=== PATIENT | female | born 1995 | race Caucasian/White ===

== ENCOUNTER → 2018-01-24 | Outpatient (CLI) | payer OTHER | END | disposition home or self-care (01) | LOC: MRI 07:27 | DX: M25.511 Pain in right shoulder (principal); Z98.890 Other specified postprocedural states; Z90.49 Acquired absence of other specified parts of digestive tract ==

== ENCOUNTER → 2018-09-06 | Outpatient (CLI) | payer OTHER | LOC: RAD 13:31 | DX: J18.9 Pneumonia, unspecified organism (principal) ==

== ENCOUNTER 2019-06-19 12:40 | Emergency (ER) | payer OTHER ==
[~2019-06-19] VITALS: Ht 162.6 cm; Wt 77.1 kg
[2019-06-19] MEDS ORDERED: MIRENA1 EACH IY (12:59)
[2019-06-19 13:35] LABS: URINE BILIRUBIN NEGATIVE (Negative); URINE BLOOD NEGATIVE (Negative); URINE CLARITY CLEAR; URINE COLOR YELLOW; URINE GLUCOSE-RANDOM* NEGATIVE (Negative); URINE KETONES NEGATIVE (Negative); URINE LEUKOCYTES-REFLEX NEGATIVE (Negative); URINE NITRITE-REFLEX NEGATIVE (Negative); URINE PROTEIN (DIPSTICK) NEGATIVE (Negative); URINE SPECIFIC GRAVITY <= 1.005 (1.005-1.035); URINE UROBILINOGEN 0.2 E.U./dl (0.2-1.0)
[2019-06-19 13:55] LABS: HEMATOCRIT 42.2 % (37.0-47.0); HEMOGLOBIN 14.4 gm/dL (12.0-15.0); MCH 30.8 pg (26.0-34.0); MCHC 34.1 g/dL (28.0-37.0); MCV 90.2 fL (80.0-100.0); RBC 4.68 mil/uL (4.20-5.00); RDW 12.6 % (10.5-14.5); WBC 7.6 thou/uL (4.0-11.0)
[2019-06-19 14:04] LABS: CALCIUM 9.5 mg/dL (8.5-10.1); CREATININE 0.8 mg/dL (0.6-1.0); POTASSIUM 3.7 mmol/L (3.5-5.1)
[2019-06-19] MEDS ORDERED: PRENATAL 19 CH1 EAC1 PO (16:28)
[2019-06-19 16:49] VITALS: BP 119/74
== END 2019-06-19 16:51 | disposition home or self-care (01) ==
LOC: ER 12:40
PROVIDERS: Emergency Medicine
DX: O26.891 Other specified pregnancy related conditions, first trimester (principal); R10.30 Lower abdominal pain, unspecified; Z3A.01 Less than 8 weeks gestation of pregnancy

== ENCOUNTER → 2019-06-24 | Outpatient (CLI) | payer OTHER ==
[~2019-06-24] MED LIST: MIRENA1 EACH IY; PRENATAL 19 CH1 EAC1 PO
== END ==
LOC: ULTRA 11:51
DX: N83.291 Other ovarian cyst, right side (principal)

== ENCOUNTER 2019-08-31 13:44 | Emergency (ER) | payer OTHER ==
[~2019-08-31] VITALS: Ht 162.6 cm; Wt 77.1 kg
[2019-08-31 15:12] LABS: BASOPHILS 0.6 % (0.0-2.0); EOSINOPHILS 0.8 % (0.0-3.0); HEMATOCRIT 42.1 % (37.0-47.0); HEMOGLOBIN 14.4 gm/dL (12.0-15.0); LYMPHOCYTES 32.4 % (24.0-44.0); MCH 30.3 pg (26.0-34.0); MCHC 34.2 g/dL (28.0-37.0); MCV 88.8 fL (80.0-100.0); PLATELET COUNT 301 thou/uL (150-400); POLYS 59.2 % (36.0-66.0); RBC 4.74 mil/uL (4.20-5.00); RDW 12.3 % (10.5-14.5); WBC 8.4 thou/uL (4.0-11.0)
[2019-08-31 15:27] LABS: CALCIUM 10.2 mg/dL (8.5-10.1); CREATININE 0.9 mg/dL (0.6-1.0); POTASSIUM 3.8 mmol/L (3.5-5.1)
[2019-08-31 15:32] LABS: ALBUMIN 4.3 g/dL (3.4-5.0); TOTAL BILIRUBIN 0.3 mg/dL (<0.1-1.0)
[2019-08-31] MEDS ORDERED: ONDANSETRON HCL4 M2 PO (16:17)
[2019-08-31 16:35] VITALS: BP 104/48
== END 2019-08-31 16:35 | disposition home or self-care (01) ==
LOC: ER 13:44
PROVIDERS: Physician Assistant
DX: O00.90 Unspecified ectopic pregnancy without intrauterine pregnancy (principal); N83.202 Unspecified ovarian cyst, left side; Z90.49 Acquired absence of other specified parts of digestive tract

== ENCOUNTER → 2020-01-29 | Outpatient (CLI) | payer OTHER ==
[~2020-01-29] MED LIST changes: +ONDANSETRON HCL4 M2 PO
== END ==
LOC: LAB 09:56
DX: R53.83 Other fatigue (principal)

== ENCOUNTER → 2020-02-14 | Outpatient (CLI) | payer OTHER ==
[2020-02-18 09:08] LABS: ANTI-DNA SCREEN 2 IU/mL (0-9); ANTI-RNP <0.2 AI (0.0-0.9)
== END ==
LOC: LAB 11:36
PROVIDERS: ATTEND Nurse Practitioner
DX: E55.9 Vitamin D deficiency, unspecified (principal); M25.50 Pain in unspecified joint

== ENCOUNTER → 2020-03-17 | Outpatient (CLI) | payer OTHER | LOC: ULTRA 10:58 | PROVIDERS: ATTEND Nurse Practitioner | DX: Z34.91 Encounter for supervision of normal pregnancy, unspecified, first trimester (principal); Z3A.01 Less than 8 weeks gestation of pregnancy ==

== ENCOUNTER → 2020-04-28 | Outpatient (CLI) | payer OTHER | LOC: ULTRA 08:42 | PROVIDERS: ATTEND Obstetrics & Gynecology | DX: O47.02 False labor before 37 completed weeks of gestation, second trimester (principal); Z3A.13 13 weeks gestation of pregnancy ==

== ENCOUNTER → 2020-06-19 | Outpatient (CLI) | payer OTHER | LOC: LAB 10:09 | PROVIDERS: ATTEND Obstetrics & Gynecology | DX: Z34.92 Encounter for supervision of normal pregnancy, unspecified, second trimester (principal) ==

== ENCOUNTER → 2020-06-23 | Outpatient (CLI) | payer OTHER | LOC: ULTRA 08:46 | PROVIDERS: ATTEND Obstetrics & Gynecology | DX: Z34.82 Encounter for supervision of other normal pregnancy, second trimester (principal); Z3A.20 20 weeks gestation of pregnancy ==

== ENCOUNTER → 2020-07-28 | Outpatient (CLI) | payer OTHER | LOC: ULTRA 10:30 | PROVIDERS: ATTEND Obstetrics & Gynecology | DX: Z34.02 Encounter for supervision of normal first pregnancy, second trimester (principal); Z3A.26 26 weeks gestation of pregnancy ==

== ENCOUNTER → 2020-08-11 | Outpatient (CLI) | payer OTHER ==
[2020-08-11 16:02] LABS: HEMATOCRIT 33.2 % (37.0-47.0); HEMOGLOBIN 11.4 gm/dL (12.0-15.0); MCH 30.5 pg (26.0-34.0); MCHC 34.3 g/dL (28.0-37.0); RBC 3.73 mil/uL (4.20-5.00); RDW 13.6 % (10.5-14.5); WBC 11.3 thou/uL (4.0-11.0)
== END ==
LOC: LABMALL 15:15
PROVIDERS: ATTEND Obstetrics & Gynecology
DX: Z34.92 Encounter for supervision of normal pregnancy, unspecified, second trimester (principal)

== ENCOUNTER 2020-08-16 19:01 | Emergency (ER) | payer OTHER ==
[~2020-08-16] VITALS: Ht 162.6 cm; Wt 90.7 kg
[2020-08-16 19:21] LABS: URINE BILIRUBIN NEGATIVE (Negative); URINE BLOOD NEGATIVE (Negative); URINE CLARITY CLEAR; URINE COLOR YELLOW; URINE GLUCOSE-RANDOM* NEGATIVE (Negative); URINE KETONES NEGATIVE (Negative); URINE NITRITE-REFLEX NEGATIVE (Negative); URINE PROTEIN (DIPSTICK) NEGATIVE (Negative); URINE UROBILINOGEN 0.2 E.U./dl (0.2-1.0)
[2020-08-16 19:27] LABS: ABSOLUTE NEUTROPHILS 11.2 thou/uL (1.4-8.2); BASOPHILS 0.6 % (0.0-2.0); EOSINOPHILS 0.4 % (0.0-3.0); HEMATOCRIT 35.4 % (37.0-47.0); HEMOGLOBIN 11.9 gm/dL (12.0-15.0); MCHC 33.8 g/dL (28.0-37.0); MCV 88.8 fL (80.0-100.0); MONOCYTES 7.3 % (1.0-8.0); PLATELET COUNT 310 thou/uL (150-400); POLYS 71.7 % (36.0-66.0); RBC 3.98 mil/uL (4.20-5.00); WBC 15.6 thou/uL (4.0-11.0)
[2020-08-16 19:28] LABS: URINE LEUKOCYTES-REFLEX 2+ (Negative)
[2020-08-16 19:43] LABS: SQUAMOUS >10 Many /LPF (0-3)
[2020-08-16 19:43] LABS: CALCIUM 9.4 mg/dL (8.5-10.1); CREATININE 0.8 mg/dL (0.6-1.0); POTASSIUM 3.7 mmol/L (3.5-5.1)
[2020-08-16 19:44] LABS: CASTS None Seen /LPF (None Seen); CRYSTALS None Seen /LPF (None Seen); URINE RBC 0-2 Rare /HPF (0-2)
[2020-08-16 19:50] LABS: APTT 22.9 Seconds (24.5-32.8); PROTIME 9.7 Seconds (9.3-11.4)
[2020-08-16 19:53] LABS: ALBUMIN 2.9 g/dL (3.4-5.0); TOTAL BILIRUBIN 0.2 mg/dL (0.2-1.0); TOTAL PROTEIN 6.8 g/dL (6.4-8.2); TROPONIN-I 0.09 ng/mL (<0.06)
[2020-08-16] MEDS ORDERED: CYCLOBENZAPRINE5 MG PO (20:22)
[2020-08-16] MEDS ORDERED: KEFLEX500 M1 PO (20:26)
[2020-08-16 20:45] VITALS: BP 112/71
[2020-08-16 20:58] LABS: URIC ACID* 3.8 mg/dL (2.6-6.0)
--- NOTE | 2020-08-17 07:23 | EKG ---
[facility] [address] [facility] [place] [address] ELECTROCARDIOGRAM REPORT Name: OPAL HIDALGO Room #: DEP Darlene#: [id number] Admission: 08/16/20 Attend Phys: Discharge: 08/16/20 Date of : 89 Report #: [id number] <ELECTRONICALLY SIGNED> By: Sandeep Naik MD, FACC 08/17/20 0723 47 47 Sandeep Naik MD, FACC /EPI
== END 2020-08-16 20:44 | disposition home or self-care (01) ==
LOC: ER 19:01
PROVIDERS: Emergency Medicine
DX: O23.43 Unspecified infection of urinary tract in pregnancy, third trimester (principal); O26.893 Other specified pregnancy related conditions, third trimester; M43.6 Torticollis; R06.4 Hyperventilation; R07.89 Other chest pain; Z3A.28 28 weeks gestation of pregnancy

== ENCOUNTER → 2020-08-18 | Outpatient (CLI) | payer OTHER ==
[~2020-08-18] MED LIST changes: +CYCLOBENZAPRINE5 MG PO; +KEFLEX500 M1 PO
== END ==
LOC: LAB 07:56
PROVIDERS: ATTEND Obstetrics & Gynecology
DX: O99.810 Abnormal glucose complicating pregnancy (principal); Z3A.00 Weeks of gestation of pregnancy not specified

== ENCOUNTER → 2020-09-15 | Outpatient (CLI) | payer OTHER | LOC: ULTRA 12:04 | PROVIDERS: ATTEND Obstetrics & Gynecology | DX: O41.8X30 Other specified disorders of amniotic fluid and membranes, third trimester, not applicable or unspecified (principal); O32.8XX0 Maternal care for other malpresentation of fetus, not applicable or unspecified; Z3A.34 34 weeks gestation of pregnancy ==

== ENCOUNTER → 2020-09-30 | Outpatient (CLI) | payer OTHER | LOC: LAB 15:17 | PROVIDERS: ATTEND Obstetrics & Gynecology | DX: O36.0930 Maternal care for other rhesus isoimmunization, third trimester, not applicable or unspecified (principal) ==

== ENCOUNTER → 2021-09-20 | Outpatient (CLI) | payer OTHER | LOC: CAT 16:15 | PROVIDERS: ATTEND Nurse Practitioner | DX: R10.9 Unspecified abdominal pain (principal); M54.50 Low back pain, unspecified ==